=== PATIENT | female | born 1945 | race Caucasian/White ===

== ENCOUNTER 2021-11-23 05:21 | Inpatient (IN) | payer MEDICARE ==
[~2021-11-23] VITALS: Ht 157.4 cm; Wt 92.1 kg
[2021-11-23 05:27] VITALS: BP 95/40
[2021-11-23 05:29] VITALS: BP 95/37
[2021-11-23 05:49] LABS: ABG BASE EXCESS 18.8 mmol/L (-2.0-2.0); ARTERIAL BLOOD GAS PH 7.315 (7.35-7.45); ARTERIAL BLOOD GAS PO2 57.8 (80-90)
[2021-11-23 06:04] LABS: BASO % 0.7 % (0.0-1.0); EOS # 0.3 10*3/uL (0.0-0.4); EOS % 5.7 % (1.0-4.0); HEMATOCRIT 34.7 % (37.0-47.0); LYMPH # 1.1 10*3/uL (1.3-4.4); LYMPH % 23.1 % (27.0-41.0); MEAN CELL VOLUME 103.6 fl (81.0-99.0); MEAN CORPUSCULAR HGB 30.7 pg (27.0-31.0); MEAN CORPUSCULAR HGB CONC 29.7 g/dl (33.0-37.0); MEAN PLATELET VOLUME 10.1 fl (9.6-12.3); MONO # 0.7 10*3/uL (0.1-1.0); MONO % 14.6 % (3.0-9.0); NEUT # 2.6 10*3/uL (2.3-7.9); NEUT % 55.7 % (47.0-73.0); PLATELET COUNT AUTOMATED 135 10*3/uL (130-400); RED BLOOD COUNT 3.35 10*6/uL (4.10-5.10); RED CELL DISTRI WIDTH 13.3 % (0-14.5); WHITE BLOOD COUNT 4.6 10*3/uL (4.8-10.8)
[2021-11-23 06:06] LABS: ALKALINE PHOSPHATASE 108 U/L (45-117); BUN 25 mg/dl (7-24); CHLORIDE 96 mmol/L (98-107); CREATININE 1.17 mg/dL (0.55-1.02); LIPASE 90 U/L (73-393); POTASSIUM 3.9 mmol/L (3.5-5.1); SGOT/AST 16 IU/L (3-35); SGPT/ALT 20 U/L (12-78); SODIUM 139 mmol/L (136-145); TOTAL PROTEIN 5.7 gm/dL (6.4-8.2)
[2021-11-23 06:26] LABS: ACT PARTIAL THROMBO TIME 23.6 SECONDS (20.0-32.1)
[2021-11-23] MEDS ORDERED: AMLODIPINE BESY10 MG PO (06:47)
[2021-11-23] MEDS ORDERED: VITAMIN C1000 M5 PO (06:48)
[2021-11-23] MEDS ORDERED: BUDESONIDE0.5 MG/2 M INH (06:54)
[2021-11-23] MEDS ORDERED: VITAMIN D325 MC1 PO (06:54)
[2021-11-23] MEDS ORDERED: B121000 MCG/1 IM (06:55)
[2021-11-23] MEDS ORDERED: PLAQUENIL200 MG PO (06:56)
[2021-11-23] MEDS ORDERED: AVAPRO150 M1 PO (06:57)
[2021-11-23] MEDS ORDERED: Ipratropium Brom3 ML INH (06:57)
[2021-11-23] MEDS ORDERED: LASIX20 MG PO (06:58)
[2021-11-23] MEDS ORDERED: KAPSPARGO SPRIN25 MG PO (06:58)
[2021-11-23] MEDS ORDERED: MIRALAX POWDER17 G1 PO (06:59)
[2021-11-23] MEDS ORDERED: MONTELUKAST SOD10 MG PO (07:00)
[2021-11-23] MEDS ORDERED: MIRTAZAPINE15 M1 PO (07:00)
[2021-11-23] MEDS ORDERED: SOLIFENACIN SUC10 MG PO (07:01)
[2021-11-23] MEDS ORDERED: PANTOPRAZOLE SO40 MG PO (07:01)
[2021-11-23] MEDS ORDERED: ZINC50 M4 PO (07:02)
[2021-11-23] MEDS ORDERED: SYNTHROID,LEVO75 MCG PO (07:02)
[2021-11-23 07:32] LABS: ABG BASE EXCESS 20.4 mmol/L (-2.0-2.0); ARTERIAL BLOOD GAS PH 7.35 (7.35-7.45)
[2021-11-23 07:56] VITALS: BP 131/74
[2021-11-23] MEDS ORDERED: BISACODYL10 MG R (09:31)
[2021-11-23] MEDS ORDERED: MILK OF MA400 MG/5 M PO (09:36)
[2021-11-23] MEDS ORDERED: PERCOCET 7.5-31 EACH PO (09:39)
[2021-11-23 10:58] LABS: BILIRUBIN Negative (Negative); BLOOD 3+ (Negative); CLARITY Cloudy (Clear); COLOR Yellow (Yellow); GLUCOSE Negative (Negative); KETONE Negative (Negative); LEUKO ESTERASE Trace (Negative); NITRITE Negative (Negative); PH 5.5 (4.5-8.0); SPECIFIC GRAVITY 1.015 (1.001-1.030); UROBILINOGEN 0.2 E.U./dl (0.0-1.0)
[2021-11-23 11:16] LABS: BACTERIA 3+; RBC 31-40 rbc/hpf (0-2)
[2021-11-23 12:00] VITALS: BP 144/69
[2021-11-23 13:50] LABS: ABG BASE EXCESS 17.8 mmol/L (-2.0-2.0); ARTERIAL BLOOD GAS PH 7.403 (7.35-7.45); ARTERIAL BLOOD GAS PO2 83.8 (80-90)
[2021-11-23 15:58] LABS: BILIRUBIN Negative (Negative); BLOOD 3+ (Negative); CLARITY Cloudy (Clear); COLOR Yellow (Yellow); GLUCOSE Negative (Negative); KETONE Negative (Negative); LEUKO ESTERASE Trace (Negative); NITRITE Negative (Negative); SPECIFIC GRAVITY >= 1.030 (1.001-1.030); UROBILINOGEN 0.2 E.U./dl (0.0-1.0)
[2021-11-23 16:00] VITALS: BP 124/61
[2021-11-23 16:21] LABS: BACTERIA 1+; EPITHELIAL CELLS 31-40; RBC TNTC rbc/hpf (0-2)
[2021-11-23 20:00] VITALS: BP 120/60
[2021-11-24] VITALS: BP 107/63
[2021-11-24 04:00] VITALS: BP 125/56
[2021-11-24 04:32] LABS: HEMATOCRIT 31.5 % (37.0-47.0); LYMPH # 0.5 10*3/uL (1.3-4.4); LYMPH % 13.2 % (27.0-41.0); MEAN CELL VOLUME 101.3 fl (81.0-99.0); MEAN CORPUSCULAR HGB 31.2 pg (27.0-31.0); MEAN CORPUSCULAR HGB CONC 30.8 g/dl (33.0-37.0); MEAN PLATELET VOLUME 10.4 fl (9.6-12.3); MONO # 0.3 10*3/uL (0.1-1.0); MONO % 8.4 % (3.0-9.0); NEUT # 2.9 10*3/uL (2.3-7.9); NEUT % 77.9 % (47.0-73.0); PLATELET COUNT AUTOMATED 139 10*3/uL (130-400); RED BLOOD COUNT 3.11 10*6/uL (4.10-5.10); RED CELL DISTRI WIDTH 13.4 % (0-14.5); WHITE BLOOD COUNT 3.7 10*3/uL (4.8-10.8)
[2021-11-24 05:08] LABS: ALKALINE PHOSPHATASE 95 U/L (45-117); BUN 30 mg/dl (7-24); CHLORIDE 95 mmol/L (98-107); CREATININE 0.91 mg/dL (0.55-1.02); POTASSIUM 4.3 mmol/L (3.5-5.1); SGOT/AST 18 IU/L (3-35); SGPT/ALT 20 U/L (12-78); SODIUM 139 mmol/L (136-145); TOTAL PROTEIN 5.5 gm/dL (6.4-8.2)
[2021-11-24 08:00] VITALS: BP 99/59
[2021-11-24 12:00] VITALS: BP 112/63
[2021-11-24 16:00] VITALS: BP 103/59
[2021-11-24 20:00] VITALS: BP 127/88
[2021-11-25] VITALS: BP 139/75
[2021-11-25 04:00] VITALS: BP 138/83
[2021-11-25 04:40] LABS: HEMATOCRIT 33.1 % (37.0-47.0); LYMPH # 0.5 10*3/uL (1.3-4.4); LYMPH % 10.3 % (27.0-41.0); MEAN CELL VOLUME 100.3 fl (81.0-99.0); MEAN CORPUSCULAR HGB 30.9 pg (27.0-31.0); MEAN CORPUSCULAR HGB CONC 30.8 g/dl (33.0-37.0); MEAN PLATELET VOLUME 10.3 fl (9.6-12.3); MONO # 0.2 10*3/uL (0.1-1.0); MONO % 4.1 % (3.0-9.0); NEUT # 4.1 10*3/uL (2.3-7.9); NEUT % 85.4 % (47.0-73.0); PLATELET COUNT AUTOMATED 170 10*3/uL (130-400); RED CELL DISTRI WIDTH 13.2 % (0-14.5); WHITE BLOOD COUNT 4.8 10*3/uL (4.8-10.8)
[2021-11-25 04:54] LABS: ALKALINE PHOSPHATASE 95 U/L (45-117); BUN 31 mg/dl (7-24); CHLORIDE 97 mmol/L (98-107); CREATININE 0.85 mg/dL (0.55-1.02); POTASSIUM 4.5 mmol/L (3.5-5.1); SGOT/AST 19 IU/L (3-35); SGPT/ALT 28 U/L (12-78); SODIUM 139 mmol/L (136-145); TOTAL PROTEIN 5.9 gm/dL (6.4-8.2)
[2021-11-25 08:00] VITALS: BP 156/93
[2021-11-25 08:22] LABS: ARTERIAL BLOOD GAS PH 7.419 (7.35-7.45); ARTERIAL BLOOD GAS PO2 125.6 (80-90)
[2021-11-25 12:00] VITALS: BP 119/73
[2021-11-25 16:00] VITALS: BP 128/66
[2021-11-25 20:00] VITALS: BP 119/66
[2021-11-26] VITALS: BP 133/76
[2021-11-26 04:00] VITALS: BP 131/79
[2021-11-26 08:00] VITALS: BP 120/63
[2021-11-26 08:02] LABS: EOS % 0.2 % (1.0-4.0); HEMATOCRIT 33.6 % (37.0-47.0); LYMPH # 1.2 10*3/uL (1.3-4.4); MEAN CELL VOLUME 103.1 fl (81.0-99.0); MEAN CORPUSCULAR HGB CONC 30.1 g/dl (33.0-37.0); MONO # 0.8 10*3/uL (0.1-1.0); MONO % 14.9 % (3.0-9.0); NEUT # 3.1 10*3/uL (2.3-7.9); NEUT % 61.5 % (47.0-73.0); PLATELET COUNT AUTOMATED 167 10*3/uL (130-400); RED BLOOD COUNT 3.26 10*6/uL (4.10-5.10); RED CELL DISTRI WIDTH 13.4 % (0-14.5)
[2021-11-26 08:18] LABS: ALKALINE PHOSPHATASE 90 U/L (45-117); BUN 29 mg/dl (7-24); CHLORIDE 98 mmol/L (98-107); CREATININE 0.84 mg/dL (0.55-1.02); SGOT/AST 34 IU/L (3-35); SGPT/ALT 54 U/L (12-78); SODIUM 143 mmol/L (136-145); TOTAL PROTEIN 5.6 gm/dL (6.4-8.2)
[2021-11-26 12:00] VITALS: BP 116/56
[2021-11-26 16:00] VITALS: BP 121/65
[2021-11-26 20:00] VITALS: BP 134/78
[2021-11-27] VITALS: BP 122/59
[2021-11-27 08:00] VITALS: BP 120/64
[2021-11-27 09:08] LABS: BASO % 0.2 % (0.0-1.0); EOS % 0.5 % (1.0-4.0); LYMPH # 1.6 10*3/uL (1.3-4.4); LYMPH % 26.8 % (27.0-41.0); MEAN CORPUSCULAR HGB 31.2 pg (27.0-31.0); MEAN CORPUSCULAR HGB CONC 30.6 g/dl (33.0-37.0); MEAN PLATELET VOLUME 9.9 fl (9.6-12.3); MONO # 0.9 10*3/uL (0.1-1.0); MONO % 15.8 % (3.0-9.0); NEUT # 3.3 10*3/uL (2.3-7.9); NEUT % 56.2 % (47.0-73.0); RED BLOOD COUNT 3.53 10*6/uL (4.10-5.10); RED CELL DISTRI WIDTH 13.4 % (0-14.5); WHITE BLOOD COUNT 5.8 10*3/uL (4.8-10.8)
[2021-11-27 09:11] LABS: PLATELET COUNT AUTOMATED 230 10*3/uL (130-400)
[2021-11-27 09:12] LABS: ABG BASE EXCESS 16.4 mmol/L (-2.0-2.0); ARTERIAL BLOOD GAS PH 7.455 (7.35-7.45); ARTERIAL BLOOD GAS PO2 93.1 (80-90)
[2021-11-27 09:22] LABS: ALKALINE PHOSPHATASE 97 U/L (45-117); BUN 25 mg/dl (7-24); CHLORIDE 99 mmol/L (98-107); CREATININE 0.64 mg/dL (0.55-1.02); POTASSIUM 3.6 mmol/L (3.5-5.1); SGOT/AST 42 IU/L (3-35); SGPT/ALT 85 U/L (12-78); SODIUM 142 mmol/L (136-145)
[2021-11-27 11:31] VITALS: BP 115/57
[2021-11-27] MEDS ORDERED: MUCINEX ER600 MG PO (12:16)
[2021-11-27] MEDS ORDERED: FUROSEMIDE40 MG PO (12:16)
[2021-11-27] MEDS ORDERED: CIPRO500 MG PO (12:16)
[2021-11-27] MEDS ORDERED: PERCOCET 7.5-31 EACH PO (12:16)
== END 2021-11-27 15:04 | DRG 871 ==
LOC: ED 05:21 → ICCU 08:26 → EDHOLD 08:26 → ICCU 08:38 → 4E 11-26 14:22
PROVIDERS: Family Medicine; Internal Medicine; Student in an Organized Health Care Education/Training Program; ADMIT Internal Medicine; ATTEND Internal Medicine
PROC: 5A09357 Assistance with Respiratory Ventilation, Less than 24 Consecutive Hours, Continuous Positive Airway Pressure (ICD-10-PCS; 2021-11-24)
PROC: 5A09357 Assistance with Respiratory Ventilation, Less than 24 Consecutive Hours, Continuous Positive Airway Pressure (ICD-10-PCS; principal; 2021-11-25)
PROC: 5A09357 Assistance with Respiratory Ventilation, Less than 24 Consecutive Hours, Continuous Positive Airway Pressure (ICD-10-PCS; 2021-11-26)
PROC: 5A09357 Assistance with Respiratory Ventilation, Less than 24 Consecutive Hours, Continuous Positive Airway Pressure (ICD-10-PCS; 2021-11-27)
DX: A41.9 Sepsis, unspecified organism (principal); G93.41 Metabolic encephalopathy; I21.4 Non-ST elevation (NSTEMI) myocardial infarction; J96.01 Acute respiratory failure with hypoxia; J44.1 Chronic obstructive pulmonary disease with (acute) exacerbation; N39.0 Urinary tract infection, site not specified; E87.2 Acidosis; N17.9 Acute kidney failure, unspecified; Z20.822 Contact with and (suspected) exposure to COVID-19; Z88.8 Allergy status to other drugs, medicaments and biological substances; R73.9 Hyperglycemia, unspecified; D53.9 Nutritional anemia, unspecified; D72.819 Decreased white blood cell count, unspecified; R77.8 Other specified abnormalities of plasma proteins; Z79.899 Other long term (current) drug therapy; B96.89 Other specified bacterial agents as the cause of diseases classified elsewhere

== ENCOUNTER 2022-01-01 20:58 | Emergency (ER) | payer MEDICARE ==
[~2022-01-01 20:58] MED LIST: AMLODIPINE BESY10 MG PO; AVAPRO150 M1 PO; B121000 MCG/1 IM; BISACODYL10 MG R; BUDESONIDE0.5 MG/2 M INH; CIPRO500 MG PO; FUROSEMIDE40 MG PO; Ipratropium Brom3 ML INH; KAPSPARGO SPRIN25 MG PO; LASIX20 MG PO; MILK OF MA400 MG/5 M PO; MIRALAX POWDER17 G1 PO; MIRTAZAPINE15 M1 PO; MONTELUKAST SOD10 MG PO; MUCINEX ER600 MG PO; PANTOPRAZOLE SO40 MG PO; PERCOCET 7.5-31 EACH PO; PLAQUENIL200 MG PO; SOLIFENACIN SUC10 MG PO; SYNTHROID,LEVO75 MCG PO; VITAMIN C1000 M5 PO; VITAMIN D325 MC1 PO; ZINC50 M4 PO
[2022-01-01 22:26] LABS: BASO % 0.4 % (0.0-1.0); EOS # 0.1 10*3/uL (0.0-0.4); EOS % 1.5 % (1.0-4.0); HEMATOCRIT 32.8 % (37.0-47.0); LYMPH # 0.8 10*3/uL (1.3-4.4); LYMPH % 10.2 % (27.0-41.0); MEAN CELL VOLUME 101.5 fl (81.0-99.0); MEAN CORPUSCULAR HGB 30.7 pg (27.0-31.0); MEAN CORPUSCULAR HGB CONC 30.2 g/dl (33.0-37.0); MEAN PLATELET VOLUME 9.6 fl (9.6-12.3); MONO # 0.9 10*3/uL (0.1-1.0); MONO % 11.1 % (3.0-9.0); NEUT # 6.2 10*3/uL (2.3-7.9); NEUT % 76.2 % (47.0-73.0); PLATELET COUNT AUTOMATED 177 10*3/uL (130-400); RED BLOOD COUNT 3.23 10*6/uL (4.10-5.10); RED CELL DISTRI WIDTH 13.7 % (0-14.5); WHITE BLOOD COUNT 8.1 10*3/uL (4.8-10.8)
[2022-01-01 22:46] LABS: CREATININE 1.2 mg/dL (0.55-1.02); POTASSIUM 4.3 mmol/L (3.5-5.1); TOTAL PROTEIN 6.5 gm/dL (6.4-8.2)
[2022-01-01 23:26] VITALS: BP 139/79
[2022-01-02] MEDS ORDERED: CIPRO500 MG PO (00:51)
== END 2022-01-02 01:48 ==
LOC: ED 20:58
PROVIDERS: Physician Assistant
DX: N13.2 Hydronephrosis with renal and ureteral calculous obstruction (principal); Z88.8 Allergy status to other drugs, medicaments and biological substances; Z79.899 Other long term (current) drug therapy; Z90.710 Acquired absence of both cervix and uterus

== ENCOUNTER → 2022-03-05 | Outpatient (CLI) | payer MEDICARE ==
[~2022-03-05] MED LIST changes: +ACIDOPHILUS1 EAC4 PO; +ATIVAN0.5 MG PO; +CHOLECALCIFEROL1 GM PO; +FLEET ENEMA 13133 ML R; +GERI-LANTA 355355 ML PO; +HUMIRA PEN40 MG/0.4 SQ; +HYDROCODONE-AC1 EAC1 PO; +Lidoderm 5% Patch T; +MACRODANTIN100 M1 PO; +MILK OF MA400 MG/51 PO; +MIRALAX17 GM PO; +PREDNISONE10 MG PO; +PREDNISONE5 MG PO; +PREMIERPRO RX500 M2 IV; +PROAIR DIGIHAL90 MCG INH; +PROTONIX40 MG PO; +TRINTELLIX20 MG PO; +VISTARIL50 MG PO
== END | disposition home or self-care (01) ==
LOC: CARD 13:00
PROVIDERS: ATTEND Internal Medicine
DX: I08.2 Rheumatic disorders of both aortic and tricuspid valves (principal)

== ENCOUNTER 2022-05-25 18:28 | Inpatient (IN) | payer OTHER ==
[~2022-05-25] VITALS: Ht 162.6 cm; Wt 77.3 kg
[~2022-05-25 18:28] MED LIST changes: +ACETAZOLAMIDE250 MG PO; +ALBUTEROL2.5 MG/0.5 INH; +ATENOLOL50 M1 PO; +BIOFREEZE118 ML T; +CLARITIN10 MG PO; +IRBESARTAN150 MG PO; +LEVOFLOXACIN500 MG PO; +LEVOTHYROXINE100 MC1 PO; +MILK OF MA2400 MG/11 PO; +MYLANTA MAXIMU355 M1 PO; +REMERON15 M2 PO; +SINGULAIR10 M1 PO
[2022-05-25 18:39] VITALS: BP 132/41
[2022-05-25 20:00] VITALS: BP 148/85
[2022-05-26] VITALS: BP 141/67
[2022-05-26 11:55] VITALS: BP 106/48
[2022-05-26 20:00] VITALS: BP 112/37
[2022-05-27] VITALS: BP 116/45
[2022-05-27 08:00] VITALS: BP 110/51
[2022-05-27 12:00] VITALS: BP 118/52
[2022-05-27 16:00] VITALS: BP 100/49
[2022-05-28] VITALS: BP 96/51
[2022-05-28 12:00] VITALS: BP 97/47
[2022-05-28 16:00] VITALS: BP 89/45
[2022-05-28 20:00] VITALS: BP 101/67
[2022-05-29 08:00] VITALS: BP 80/48
[2022-05-29 12:00] VITALS: BP 98/50
[2022-05-29 16:00] VITALS: BP 104/50
[2022-05-29 20:00] VITALS: BP 98/46
[2022-05-30] VITALS: BP 94/47
[2022-05-30 08:00] VITALS: BP 84/38
[2022-05-30 12:00] VITALS: BP 74/35
[2022-05-30 14:00] VITALS: BP 86/20
[2022-05-30 20:52] VITALS: BP 62/27
[2022-05-31] VITALS: BP 57/28
== END 2022-05-31 07:50 | DRG 189 ==
LOC: 4E 18:28
PROVIDERS: ADMIT Internal Medicine; ATTEND Internal Medicine
DX: J96.21 Acute and chronic respiratory failure with hypoxia (principal); J69.0 Pneumonitis due to inhalation of food and vomit; J96.22 Acute and chronic respiratory failure with hypercapnia; R62.7 Adult failure to thrive; J44.9 Chronic obstructive pulmonary disease, unspecified; Z51.5 Encounter for palliative care; Z68.29 Body mass index [BMI] 29.0-29.9, adult